=== PATIENT | male | born 1960 | race Caucasian/White ===

== ENCOUNTER 2020-03-20 01:48 | Outpatient (CLI) | payer OTHER, SELFPAY ==
[2020-03-20 17:02] LABS: SARS-CoV-2 RNA PCR Negative
== END 2020-03-20 01:49 | disposition home or self-care (01) ==
LOC: ANHCOVIDDT 01:48
PROVIDERS: PCP Emergency Medicine; Visit Provider Internal Medicine Gastroenterology
DX: Z01.812 Encounter for preprocedural laboratory examination (principal); Z20.828 Contact with and (suspected) exposure to other viral communicable diseases
CPT/HCPCS: 87635; C9803; U0003

== ENCOUNTER 2020-03-22 00:24 | Day surgery (SDC) | payer OTHER, SELFPAY ==
[2020-03-15 12:17] VITALS: BMI 21.3
--- NOTE | 2020-03-22 09:50 | WPDANESEPPF ---
Anes - Initial Pre Proc Eval Procedure: Operation Date: 03/22/20 10:30 Proposed Procedures p Flexible Sigmoidoscopy - Eliel Jiang MD Date/Time: 03/22/20 09:50 Surgeon: Eliel Jiang MD Pre Op Diagnosis: Hx of Anal Cancer Patient Data Age: 60 Gender: M Height: 1.68 m Weight: 60 kg Allergies Allergy/AdvReac Type Severity Reaction Status Date / Time perfume AdvReac Severe Nausea and Verified 03/15/20 12:08 Vomiting Home Medications Medication Instructions Recorded Confirmed Type alprazolam 0.25 mg tablet See Rx Instructions .ROUTE .COMPLEX 08/21/19 03/15/20 History cholecalciferol (vitamin D3) 25 1,000 unit PO DAILY 08/21/19 03/15/20 History mcg (1,000 unit) tablet sodium oxybate 500 mg/mL oral See Rx Instructions .ROUTE .COMPLEX 08/21/19 03/15/20 History solution lovastatin 20 mg tablet 20 mg PO .COMPLEX #90 tablet 11/21/19 03/15/20 Rx methylphenidate HCl 20 mg tablet See Rx Instructions .ROUTE 03/12/20 03/15/20 History .COMPLEX tablet imipramine pamoate See Rx Instructions .ROUTE .COMPLEX 03/15/20 03/15/20 History PMFSH Past Medical History Medical History (Updated 03/22/20 @ 09:53 by Peter Haskins MD) Cancer ANAL CANCEROUS POLYP REMOVED 2008 WITH CHEMO AND RADIATION Cataplexy and narcolepsy Hyperlipidemia Social History Social History Smoking packs per day: 1 Smoking cigarettes per day: 20.0 Years smoked: 40 Smoking pack-years: 40.00 Smoking status: Current every day smoker Tobacco type: cigarettes Alcohol intake: former Substance use type: does not use Living arrangements: alone Spiritual care concerns: No Anes - Eval Final PreProcedure Day of Procedure 03/22/20 09:50 Patient weight: overweight Heart: regular rate and rhythm Lungs: clear to auscultation and normal air movement Airway: Mallampati scale class II Neurological: alert and oriented Last oral intake: >/= 8 hours ASA classification: III Emergent: no Anesthetic plan: proceed Anesthesia type and monitoring: general GIVS Informed Consent: The patient's anesthetic plan and its attendant risks and benefits were discussed with the patient/family/POA. Questions were solicited and answers provided to the satisfaction of the patient/family/POA.
[2020-03-22 10:17] VITALS: BP 163/86; PULSE 71; RESP 16; TEMP 36.5; O2SAT 100; BMI 20.7
[2020-03-22] MEDS: LACTATED RINGERS 1,000 ML 150 ML IV CONT (10:32)
--- NOTE | 2020-03-22 11:49 | P.HP_ITS ---
History of Present Illness History of Present Illness Consent: Risks, benefits, and alternatives have been discussed and questions answered. Patient agrees to proceed with procedure. Chief complaint: Hx of Anal Cancer Narrative: Shaka Iyer is a 60 year old W male referred for flexible sigmoidoscopy for follow-up of anal cancer. Patient is lax flexible sigmoidoscopy was in 2015. Patient's last colonoscopy was in 2014 no polyps were seen at that time. Patient's anal cancer was diagnosed in the fall of 2008 he was treated had [facility] radiation therapy and chemotherapy. [facility] Past Medical History Medical History Cancer ANAL CANCEROUS POLYP REMOVED 2008 WITH CHEMO AND RADIATION Cataplexy and narcolepsy Hyperlipidemia Social History Social History Smoking packs per day: 1 Smoking cigarettes per day: 20.0 Years smoked: 40 Smoking pack-years: 40.00 Smoking status: Current every day smoker Tobacco type: cigarettes Alcohol intake: former Substance use type: does not use Living arrangements: alone Spiritual care concerns: No Meds Home Medications and Allergies Home Medications Medication Instructions Recorded Confirmed Type alprazolam 0.25 mg tablet See Rx Instructions .ROUTE .COMPLEX 08/21/19 03/22/20 History cholecalciferol (vitamin D3) 25 1,000 unit PO DAILY 08/21/19 03/22/20 History mcg (1,000 unit) tablet sodium oxybate 500 mg/mL oral See Rx Instructions .ROUTE .COMPLEX 08/21/19 03/22/20 History solution lovastatin 20 mg tablet 20 mg PO .COMPLEX #90 tablet 11/21/19 03/22/20 Rx methylphenidate HCl 20 mg tablet See Rx Instructions .ROUTE 03/12/20 03/22/20 History .COMPLEX tablet imipramine pamoate See Rx Instructions .ROUTE .COMPLEX 03/15/20 03/22/20 History Allergies Allergy/AdvReac Type Severity Reaction Status Date / Time perfume AdvReac Severe Nausea and Verified 03/15/20 12:08 Vomiting Vital Signs Vital Signs - 24 hr 03/22/20 10:17 Temperature 36.5 C Pulse Rate 71 Respiratory Rate 16 Blood Pressure 163/86 H Pulse Oximetry 100 Exam Const: Orientation/consciousness: patient oriented x3 Resp: Auscultation: clear to auscultation bilaterally Cardio: Rate: regular rate Rhythm: regular rhythm Heart sounds: no murmurs GI: GI Palp: Yes Soft to palpation, No Tenderness to palpation present (GI), Yes No hepatosplenomegaly present and No Palpable mass present Auscultation: normal bowel sounds Neuro: General: patient oriented x3 and no focal motor deficits Extrem: General: no pedal edema Assessment and Plan Additional Plan Flexible sigmoidoscopy for evaluation of history of anal cancer
[2020-03-22 12:18] VITALS: BP 141/98; PULSE 78; RESP 21; O2SAT 100
[2020-03-22 12:28] VITALS: BP 144/96; PULSE 69; RESP 24; O2SAT 100
[2020-03-22 12:30] VITALS: BP 147/84; PULSE 65; RESP 18; O2SAT 100
--- NOTE | 2020-03-22 12:46 | SUR.PHASEII ---
PATIENT HAD NO SEDATION DURING FLEXIBLE SIGMOIDOSCOPY. PATIENT HOOKED UP TO MONITORS DURING PROCEDURE, [address] GARZA TALKED WITH PATIENT DURING AND AFTER PROCEDURE IN INTRA OP ROOM. PATIENT TAKEN TO POST-OP AND 1 SET OF VITAL SIGNS TAKEN AND WALKED TO WAITING ROOM TO WAIT FOR [employer]IG[facility] [employer] TO PICK HIM UP.
== END 2020-03-22 12:50 | disposition home or self-care (01) ==
PROVIDERS: PCP Emergency Medicine; Visit Provider Internal Medicine Gastroenterology
PROC: 0DJD8ZZ Inspection of Lower Intestinal Tract, Via Natural or Artificial Opening Endoscopic (ICD-10-PCS; CPT 45330; principal; 2020-03-22 10:30)
DX: Z08 Encounter for follow-up examination after completed treatment for malignant neoplasm (principal); K64.4 Residual hemorrhoidal skin tags; Z85.048 Personal history of other malignant neoplasm of rectum, rectosigmoid junction, and anus; Z92.21 Personal history of antineoplastic chemotherapy; Z92.3 Personal history of irradiation; G47.411 Narcolepsy with cataplexy; E78.5 Hyperlipidemia, unspecified; F17.210 Nicotine dependence, cigarettes, uncomplicated
CPT/HCPCS: 45330; J2704; J7120

== ENCOUNTER 2020-09-27 12:57 | Outpatient (CLI) | payer OTHER, MEDICARE, SELFPAY | END 2020-09-27 12:58 | disposition home or self-care (01) | LOC: ANHCOVIDVC 12:57 | PROVIDERS: PCP Emergency Medicine | DX: Z23 Encounter for immunization (principal) | CPT/HCPCS: 0001A; 91300 ==

== ENCOUNTER 2020-10-18 13:05 | Outpatient (CLI) | payer OTHER, MEDICARE, SELFPAY | END 2020-10-18 13:06 | disposition home or self-care (01) | LOC: ANHCOVIDVC 13:05 | PROVIDERS: PCP Emergency Medicine | DX: Z23 Encounter for immunization (principal) | CPT/HCPCS: 0002A; 91300 ==

== ENCOUNTER 2022-11-05 01:13 | Day surgery (SDC) | payer OTHER, SELFPAY ==
[2022-10-29 10:21] VITALS: BMI 44.4
--- NOTE | 2022-11-04 13:48 | WPDANESEPPF ---
Anes - Initial Pre Proc Eval Procedure: Operation Date: 11/05/22 10:15 Proposed Procedures p Colonoscopy - Eliu Olivas MD Date/Time: 11/04/22 13:48 Surgeon: Eliu Olivas MD Pre Op Diagnosis: bowel dysfunction Patient Data Age: 62 Gender: M Height: 1.68 m Weight: 125 kg Allergies Allergy/AdvReac Type Severity Reaction Status Date / Time perfume AdvReac Severe Nausea and Verified 11/05/22 08:45 Vomiting Home Medications Medication Instructions Recorded Confirmed Type cholecalciferol (vitamin D3) 25 1,000 unit PO DAILY 08/21/19 11/05/22 History mcg (1,000 unit) tablet alprazolam 0.25 mg tablet See Rx Instructions .Route 09/12/20 11/05/22 Rx .COMPLEX #30 tabs methylphenidate HCl 20 mg tablet See Rx Instructions .Route .COMPLEX 02/05/21 11/05/22 History sodium oxybate 500 mg/mL oral See Rx Instructions .Route .COMPLEX 02/05/21 11/05/22 History solution (Xyrem) lovastatin 20 mg tablet 20 mg PO .COMPLEX #90 tabs 11/05/21 11/05/22 Rx Patient hx anesthesia problems: none Family hx anesthesia problems: none Results Review: All pre-operative results and documents have been reviewed as part of the pre-operative evaluation. [facility] Past Medical History Medical History (Updated 11/04/22 @ 13:49 by Regino Spencer DO) Acute dyspnea Adenomatous colon polyp Body mass index [BMI] 20.0-20.9, adult (08/13/15) Bowel habit changes Cancer ANAL CANCEROUS POLYP REMOVED 2008 WITH CHEMO AND RADIATION Cataplexy and narcolepsy Colitis Erectile dysfunction due to diseases classified elsewhere Fever and chills Flat foot [pes planus] (acquired), left foot Folliculitis Functional diarrhea History of anal cancer Hyperkalemia Hyperlipidemia Hypogonadism male Migraine, unspecified, not intractable, without status migrainosus Narcolepsy Pain in left foot Pain in right foot Penile lesion Pes planus of both feet Rectal cancer Skin lesion of back Tinea unguium URI with cough and congestion Vitamin D deficiency Wheezing on auscultation Family History Family History Sibling Family history of diabetes mellitus in first degree relative Family history of malignant neoplasm of breast in first degree relative Family history of gastrointestinal disorder Father Family history of gout Mother Family history of Alzheimer's disease, Onset Age: 78 Family history of diabetes mellitus in first degree relative Family history of malignant neoplasm of breast in first degree relative Social History Social History Social History: Patient drinks 1 cup of caffeine daily. Smoking packs per day: 1 Smoking cigarettes per day: 20.0 Years smoked: 40 Smoking pack-years: 40.00 Smoking status: Current every day smoker Tobacco type: cigarettes Alcohol intake: never Substance use: never Substance use type: does not use Living arrangements: alone Occupation/Education: other Additional occupation/education comments: Patient is disabled. Gender identity (if verbalized by the patient): Male Spiritual care concerns: No Anes - Eval Final PreProcedure Day of Procedure 11/04/22 13:48 Patient weight: morbidly obese Heart: regular rate and rhythm Lungs: clear to auscultation Airway: Mallampati scale class II Neurological: alert and oriented Last oral intake: >/= 8 hours ASA classification: III Emergent: no Anesthetic plan: proceed Anesthesia type and monitoring: general GIVS and standard monitoring Results Review: All pre-operative results and documents have been reviewed as part of the pre-operative evaluation. Informed Consent: The patient's anesthetic plan and its attendant risks and benefits were discussed with the patient/family/POA. Questions were solicited and answers provided to the satisfaction of the patient/family
[2022-11-05 08:46] VITALS: BP 127/80; PULSE 87; RESP 18; TEMP 36.8; O2SAT 98; BMI 19.6
[2022-11-05] MEDS: LACTATED RINGERS 1,000 ML 150 ML IV CONT (08:55)
--- NOTE | 2022-11-05 09:20 | PM.HPGS ---
History of Present Illness History of Present Illness Consent: Risks, benefits, and alternatives have been discussed and questions answered. Patient agrees to proceed with procedure. Chief complaint: bowel dysfunction Narrative: Shaka Iyer is a 62 year old male here for colonoscopy, h/o localized SCC anus s/p surgery, XRT and chemotherapy in 2008, since he has been getting scopes every so often without any recurrence of disease, last sigmoidoscopy 2019 (previously also had TA polyps removed). Since diagnosed of anal cancer he has been having change in bowel habits, sometimes loose stools and using antidiarrheal as needed Review of Systems Constitutional: Constitutional: Denies headache(s) and Denies weakness Eyes: Eyes: Denies blurry vision ENT: Reports Normal hearing present, Denies headache(s) and Denies neck pain Cardiovascular: Cardiovascular: Denies chest pain and Denies dyspnea Respiratory: Respiratory: Denies dyspnea Gastrointestinal: Gastrointestinal: Reports no additional gastrointestinal complaints Genitourinary: Genitourinary: Denies dysuria Musculoskeletal: Musculoskeletal: Denies neck pain Integumentary/Breasts: Skin/Breast: Denies dry skin Neurologic: Reports Normal hearing present, Denies headache(s) and Denies weakness Psychiatric: Psychiatric: Denies anxiety Endocrine: Endocrine: Denies change in body appearance Hematologic/Lymphatic: Hematologic/Lymphatic: Denies easy bleeding Allergic/Immunologic: Allergic/Immunologic: Denies urticaria PMFSH Past Medical History Medical History (Updated 11/04/22 @ 13:49 by Regino Spencer DO) Acute dyspnea Adenomatous colon polyp Body mass index [BMI] 20.0-20.9, adult (08/13/15) Bowel habit changes Cancer ANAL CANCEROUS POLYP REMOVED 2008 WITH CHEMO AND RADIATION Cataplexy and narcolepsy Colitis Erectile dysfunction due to diseases classified elsewhere Fever and chills Flat foot [pes planus] (acquired), left foot Folliculitis Functional diarrhea History of anal cancer Hyperkalemia Hyperlipidemia Hypogonadism male Migraine, unspecified, not intractable, without status migrainosus Narcolepsy Pain in left foot Pain in right foot Penile lesion Pes planus of both feet Rectal cancer Skin lesion of back Tinea unguium URI with cough and congestion Vitamin D deficiency Wheezing on auscultation Family History Family History Sibling Family history of diabetes mellitus in first degree relative Family history of malignant neoplasm of breast in first degree relative Family history of gastrointestinal disorder Father Family history of gout Mother Family history of Alzheimer's disease, Onset Age: 78 Family history of diabetes mellitus in first degree relative Family history of malignant neoplasm of breast in first degree relative Social History Social History Social History: Patient drinks 1 cup of caffeine daily. Smoking packs per day: 1 Smoking cigarettes per day: 20.0 Years smoked: 40 Smoking pack-years: 40.00 Smoking status: Current every day smoker Tobacco type: cigarettes Alcohol intake: never Substance use: never Substance use type: does not use Living arrangements: alone Occupation/Education: other Additional occupation/education comments: Patient is disabled. Gender identity (if verbalized by the patient): Male Spiritual care concerns: No Meds Home Medications and Allergies Home Medications Medication Instructions Recorded Confirmed Type cholecalciferol (vitamin D3) 25 1,000 unit PO DAILY 08/21/19 11/05/22 History mcg (1,000 unit) tablet alprazolam 0.25 mg tablet See Rx Instructions .Route 09/12/20 11/05/22 Rx .COMPLEX #30 tabs methylphenidate HCl 20 mg tablet See Rx Instructions .Route .COMPLEX 02/05/21 11/05/22 History sodium oxybate 500 mg/mL ora
[2022-11-05 09:33] VITALS: BP 82/55; PULSE 60; RESP 18; O2SAT 97
[2022-11-05 09:43] VITALS: BP 91/58; PULSE 56; RESP 18; O2SAT 100
[2022-11-05 09:53] VITALS: BP 100/67; PULSE 58; RESP 18; O2SAT 100
== END 2022-11-05 10:22 | disposition home or self-care (01) ==
PROVIDERS: PCP Emergency Medicine; Visit Provider Internal Medicine Gastroenterology
PROC: 0DJD8ZZ Inspection of Lower Intestinal Tract, Via Natural or Artificial Opening Endoscopic (ICD-10-PCS; CPT 45378; principal; 2022-11-05 10:15)
DX: R19.4 Change in bowel habit (principal); K57.30 Diverticulosis of large intestine without perforation or abscess without bleeding; Z85.048 Personal history of other malignant neoplasm of rectum, rectosigmoid junction, and anus; Z86.010 Personal history of colon polyps; Z92.3 Personal history of irradiation; Z92.21 Personal history of antineoplastic chemotherapy; E78.5 Hyperlipidemia, unspecified; G47.411 Narcolepsy with cataplexy; E55.9 Vitamin D deficiency, unspecified; F17.210 Nicotine dependence, cigarettes, uncomplicated
CPT/HCPCS: 45380; 88305; J2704; J7120

== ENCOUNTER 2022-12-15 12:24 | Outpatient (CLI) | payer OTHER, SELFPAY ==
--- NOTE | ~2022-12-15 | CT_ITS ---
EXAMINATION: CT abdomen pelvis wo con DATE: 12/15/2022 12:42 INDICATION: Change in bowel habits TECHNIQUE: Computed tomography (CT) of the abdomen and pelvis was performed without intravenous contr ast. Automated exposure control and iterative reconstruction technique were employed. Exam dose: 178 .42 mGy-cm total exam DLP. COMPARISON: None. FINDINGS: Cystic changes likely secondary to emphysema are noted in the included lower lung zones. Th ere is bilateral dependent posterior basilar lower lobe discoid atelectasis. Normal heart size. There is trace pericardial fluid. The liver, gallbladder, bile ducts, pancreas, pancreatic duct and spleen are unremarkable. Normal morphology of the adrenal glands. No renal mass lesion or urinary tract calculus or hydroureteronephrosis is detected. The urinary blad justino is unremarkable. Diverticulosis of left colon; no CT evidence of diverticulitis. Normal appendix. No bowel obstruction or pneumatosis or intraperitoneal free air. No abnormal distention of the small or large bowel. Ther e is nonspecific thickness of the colon wall throughout which may be normal for this patient versus c olitis. Clinical correlation is advised. There is atherosclerotic calcification of the abdominal aorta and iliac arteries. No abdominal aortic aneurysm. No intraperitoneal or retroperitoneal or pelvic mass lesion or adenopathy or ascites. No suspicious osteolytic or osteoblastic lesions. Moderate moderate degenerative changes of the lower thoracic and lumbar spine. IMPRESSION: Normal appendix Diverticulosis of the left colon; no CT evidence of diverticulitis There is a prominent amount of fecal material in the colon; no bowel obstruction or free air Nonspecific diffuse thickening of the colon wall which may be normal for this patient versus colitis Reviewed, dictated and finalized at [facility]. Reviewed, dictated and finalized at [facility]. IMPRESSION: Normal appendix Diverticulosis of the left colon; no CT evidence of diverticulitis There is a prominent amount of fecal material in the colon; no bowel obstructio n or free air Nonspecific diffuse thickening of the colon wall which may be normal for this p atient versus colitis
== END 2022-12-15 12:25 | disposition home or self-care (01) ==
LOC: ANHIMG 12:27
PROVIDERS: PCP Emergency Medicine; Visit Provider Emergency Medicine
DX: R19.4 Change in bowel habit (principal); K57.30 Diverticulosis of large intestine without perforation or abscess without bleeding
CPT/HCPCS: 74176

== ENCOUNTER 2023-09-07 13:28 | Outpatient (CLI) | payer OTHER, SELFPAY ==
--- NOTE | ~2023-09-07 | CT_ITS ---
EXAMINATION: CT abdomen pelvis w con INDICATION: Unspecified abdominal pain, history of rectal cancer TECHNIQUE: Computed tomographic images of the abdomen and pelvis were obtained after the administrati on of 100 cc of Omnipaque 350 intravenous contrast. The dose-length product (DLP) was 180.32 mGy-cm. Automated exposure control and iterative reconstruction technique were employed. COMPARISON: 12/15/2022 FINDINGS: There is moderate emphysema of the visualized lung bases. Dependent atelectasis is noted. T here is calcified coronary artery atherosclerosis. The heart size is normal. The liver, spleen, pancr eas, gallbladder, and adrenal glands are normal. The kidneys are unremarkable. No pathologically enla rged abdominal or pelvic lymph nodes are identified. There is calcified atherosclerosis of the aorta and many of the other arteries. The appendix is normal. No free intraperitoneal gas or evidence of romelia wel obstruction. There is mild lumbar spondylosis. IMPRESSION: 1. No CT correlate for the patient's symptoms. Reviewed, dictated and finalized at [facility]. CLASSIFIER
== END 2023-09-07 13:29 | disposition home or self-care (01) ==
LOC: ANHIMG 13:30
PROVIDERS: PCP Emergency Medicine; Visit Provider Emergency Medicine
DX: R10.9 Unspecified abdominal pain (principal)
CPT/HCPCS: 74177; Q9967

== ENCOUNTER 2023-12-11 09:36 | Outpatient (CLI) | payer OTHER, SELFPAY ==
--- NOTE | ~2023-12-11 | CT_ITS ---
CT Scan of the Chest without Contrast: Clinical Indication: Lung cancer screening, nicotine dependence Technique: Contiguous sections were acquired throughout the chest without intravenous contrast. Dose reduction technique was used on this scan by utilizing automated exposure control and iterative recon struction technique. The dose-length product (DLP) was 65.91 mGy-cm. COMPARISON: 09/07/2023 Findings: There is no evidence of any significant mediastinal, hilar or axillary lymphadenopathy. Extensive cor onary artery calcifications are present. Minimal pericardial fluid present. No pleural effusion. There is moderate to severe emphysema. Stable discoid/nodular scarring or atelectasis at the left rudolph g base. Images through the upper abdomen reveal no abnormalities. Impression: Lung RADS 2: Benign appearance. 12 month follow-up screening CT advised. Moderate to severe emphysema. Reviewed, dictated and finalized at [facility]. Impression: Lung RADS 2: Benign appearance. 12 month follow-up screening CT advised. Moderate to severe emphysema.
== END 2023-12-11 09:37 | disposition home or self-care (01) ==
LOC: ANHIMG 09:37
PROVIDERS: PCP Emergency Medicine; Visit Provider Internal Medicine Critical Care Medicine
DX: Z12.2 Encounter for screening for malignant neoplasm of respiratory organs (principal); Z87.891 Personal history of nicotine dependence; J43.9 Emphysema, unspecified
CPT/HCPCS: 71271